=== PATIENT | male | born 1985 | race Caucasian/White ===

== ENCOUNTER 2016-06-05 12:15 | Emergency (ER) | payer SELFPAY ==
[~2016-06-05] VITALS: Ht 175.3 cm; Wt 90.7 kg
[2016-06-05] MEDS ORDERED: MORPHINE SULFATE 4 MG/ML DISP.SYRIN. IV/SQ PRN (12:45)
[2016-06-05] MEDS ORDERED: DIPHTH,PERTUSS(ACELL),TET TOX 0.5 ML DISP.SYRIN. VAX IM ONE (13:15)
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
[2016-06-05] MEDS ORDERED: IV NORMAL SALINE 1000ML BAG 1,000 ML IV ONE (13:30)
[2016-06-05] MEDS ORDERED: HYDROCODONE/APAP 5/325MG TABLET. PO ONE ×2 (13:45)
[2016-06-05 13:49] VITALS: BP 155/88
[2016-06-06] MEDS ORDERED: CYCL10TA2 PO (23:53)
== END 2016-06-05 13:49 | disposition home or self-care (01) ==
LOC: ER 12:15
DX: S09.90XA Unspecified injury of head, initial encounter (principal); M54.2 Cervicalgia; Z88.8 Allergy status to other drugs, medicaments and biological substances; V49.49XA Driver injured in collision with other motor vehicles in traffic accident, initial encounter; Y93.89 Activity, other specified; Y99.8 Other external cause status; Y92.488 Other paved roadways as the place of occurrence of the external cause
CPT/HCPCS: 70450; 72125; 90471; 90715; 96374; 99284; J2270

== ENCOUNTER 2016-06-06 22:44 | Emergency (ER) | payer SELFPAY ==
[2016-06-06 22:55] VITALS: BP 135/85
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
[2016-06-06] MEDS ORDERED: CYCL10TA2 PO (23:53)
[2016-06-07] MEDS ORDERED: IBUPROFEN 800 MG TABLET. PO ONE
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
== END 2016-06-06 23:56 | disposition home or self-care (01) ==
LOC: ER 22:44
DX: M25.511 Pain in right shoulder (principal); Z88.8 Allergy status to other drugs, medicaments and biological substances; V43.52XA Car driver injured in collision with other type car in traffic accident, initial encounter; Y93.89 Activity, other specified; Y99.8 Other external cause status; Y92.89 Other specified places as the place of occurrence of the external cause
CPT/HCPCS: 73030; 99284

== ENCOUNTER 2021-06-01 20:00 | Emergency (ER) | payer SELFPAY ==
[~2021-06-01] VITALS: Ht 175.3 cm; Wt 190.0 kg
[~2021-06-01 20:00] MED LIST: CYCL10TA19 PO
[2021-06-01 20:44] VITALS: BP 149/88
[2021-06-01] MEDS ORDERED: IBUP-1007 PO (21:57)
[2021-06-01] MEDS ORDERED: HYDR-2761 PO (21:57)
[2021-06-01] MEDS ORDERED: ACETAMINOPHEN 500 MG TABLET PO ONE (22:00)
[2021-06-01] MEDS ORDERED: KETOROLAC 60 MG/2 ML VIAL. IM ONE (22:00)
[2021-06-01] MEDS ORDERED: TRIAMCINOLONE PRES.FREE 40 MG/ML VIAL. IM ONE (22:00)
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
== END 2021-06-02 00:06 | disposition home or self-care (01) ==
LOC: ER 20:00
DX: G56.03 Carpal tunnel syndrome, bilateral upper limbs (principal); F17.200 Nicotine dependence, unspecified, uncomplicated; Z88.8 Allergy status to other drugs, medicaments and biological substances
CPT/HCPCS: 29125; 96372; 99284; J1885; J3301